=== PATIENT | female | born 1995 | race Caucasian/White ===

== ENCOUNTER 2017-06-11 09:13 | Emergency (ER) | payer OTHER ==
--- NOTE | ~2017-06-11 | ER ---
PATIENT'S NAME: [facility] AGE: 22 Y [address] ROOM: [place] [id number] LOCATION: [facility] ADMIT DATE: 06/11/2017 ER/Outpatient Report DISCHARGE DATE: 06/11/2017 FAMILY PHYSICIAN: Palmer Jensen MD ATTENDING PHYSICIAN: Meilta Schwarz Time of Arrival: 912. Time of Evaluation: 955. IDENTIFICATION: A 22-year-old female. CHIEF COMPLAINT: Left-sided back pain. HISTORY OF PRESENT ILLNESS: The patient has left low back pain worse with movement. No injury or fall. She does work at the in [place] and does do a fair amount of lifting apparently, but no known injury. No dysuria, but some increased frequency of urination. No hematuria. Last menstrual period was 1 month ago, May 11. It was normal, came at the right time. She denies any chance of . ALLERGIES: NO KNOWN DRUG ALLERGIES. CURRENT MEDICATIONS: Denies. MEDICAL PROBLEMS: Denies. PRIOR SURGERIES: section. She is a . Living children 2. She has 3-year-old twins and then she has a 7-year-old stepdaughter. REVIEW OF SYSTEMS: All systems reviewed and negative other than what is noted in the HPI. PHYSICAL EXAMINATION: VITAL SIGNS: Height 5 feet 8 inches, weight 80 kg. Blood pressure 116/66, pulse 75, respirations 16, temperature 98.5, sats 100% on room air. GENERAL: A 22-year-old female, in no acute distress. HEENT: Unremarkable. LUNGS: Clear to auscultation. PATIENT'S NAME: [facility]LL [facility] AGE: 22 Y [address] ROOM: [place] [address] LOCATION: [facility] ADMIT DATE: 06/11/2017 ER/Outpatient Report DISCHARGE DATE: 06/11/2017 FAMILY PHYSICIAN: Palmer Jensen MD ATTENDING PHYSICIAN: Melita Schwarz HEART: Regular rate and rhythm. ABDOMEN: Soft, nondistended, nontender. SKIN: [place], warm, and dry. No lesions or rashes noted. NEUROLOGIC: No focal deficit. The patient is nontender to palpation, but she is tender with movement. Negative straight leg raise. LABORATORY DATA AND X-RAYS: UA negative. Urine hCG is positive. IMPRESSION AND PLAN: 1. Musculoskeletal low back pain. Plan: Tylenol for pain. No heavy lifting. Ice or heat as needed. 2. Positive test. Plan: Follow up with Dr. Jensen next week. Follow up sooner if any problems or concerns. The patient and her understand and agree, and all questions have been answered. MELITA SCHWARZ MD CAR/modl /[id number] d: 06/12/17230 t: 06/13/172042, OUTPATIENT REPORT
[2017-06-11 10:47] LABS: BILIRUBIN URINE NEGATIVE (NEGATIVE); BLOOD URINE NEGATIVE /UL (NEGATIVE); COLOR URINE COLORLESS (YELLOW); GLUCOSE URINE NEGATIVE (NEGATIVE); KETONE URINE NEGATIVE (NEGATIVE); LEUKOCYTES URINE NEGATIVE /UL (NEGATIVE); NITRITE URINE NEGATIVE (NEGATIVE); PH URINE 6.5 (4.0-8.0); PROTEIN URINE NEGATIVE (NEGATIVE); TURBIDITY URINE CLEAR (CLEAR); UROBILINOGEN URINE NORMAL (NORMAL)
== END 2017-06-11 11:10 | disposition disaster alternative care site (69) ==
LOC: GMED 09:13
PROVIDERS: Family Medicine
DX: M54.5 Low back pain (principal); Z32.01 Encounter for pregnancy test, result positive; R35.0 Frequency of micturition; F17.210 Nicotine dependence, cigarettes, uncomplicated